=== PATIENT | male | born 1990 | race Two or more races ===

== ENCOUNTER 2020-09-29 05:22 | Day surgery (SDC) | payer OTHER ==
[~2020-09-29 05:22] MED LIST: PROAIR HFA8.5 GM IH; SYMBICORT 16010.2 GM IH
== END 2020-09-29 10:00 | disposition home or self-care (01) ==
LOC: CIR.AMB 05:22
PROVIDERS: ATTEND Surgery Surgery of the Hand
DX: M65.841 Other synovitis and tenosynovitis, right hand (principal); Z20.822 Contact with and (suspected) exposure to COVID-19

== ENCOUNTER 2020-10-20 05:10 | Day surgery (SDC) | payer OTHER | END 2020-10-20 10:40 | disposition home or self-care (01) | LOC: CIR.AMB 05:10 | PROVIDERS: ATTEND Surgery Surgery of the Hand | DX: M65.842 Other synovitis and tenosynovitis, left hand (principal); Z20.822 Contact with and (suspected) exposure to COVID-19 ==